=== PATIENT | female | born 1995 | race African-American/Black ===

== ENCOUNTER 2024-04-28 10:12 | Outpatient (CLI) | payer BC ==
[2024-04-28 11:23] VITALS: BMI 40.7
== END 2024-04-28 10:13 | disposition home or self-care (01) ==
LOC: CSHLAB 10:12
PROVIDERS: ATTEND Obstetrics & Gynecology
DX: Z01.812 Encounter for preprocedural laboratory examination (principal)
CPT/HCPCS: 85027; 86780; 86850; 86900; 86901; 87340

== ENCOUNTER 2024-04-29 10:03 | Inpatient (IN) | payer BC ==
[2024-04-28 11:09] LABS: Hematocrit 34.5 % (34.9-44.5); Hemoglobin 11.6 g/dL (12.0-15.5); Mean Corpuscular HGB CONC 33.6 g/dL (32.0-36.0); Mean Corpuscular Hemoglobin 30.6 pg (27.0-33.0); Mean Platelet Volume 10.8 fL (7.4-10.4); Platelet Count 203 10x3/uL (150-450); RBC Distribution Width 12.8 % (11.5-14.5); Red Blood Cell (RBC) Count 3.79 10x6/uL (3.90-5.03)
[2024-04-28 11:57] LABS: HBsAg Index 0.22 S/CO (0-0.99); Hep B Surf Ag Non-Reactive S/CO (NonReactive)
[2024-04-28 11:59] LABS: Syphilis Antibody Nonreactive (Nonreactive); Syphilis Antibody Index 0.05 S/CO (<1.00 Non-Reactive)
[2024-04-29] MEDS ORDERED: Ondansetron PF 4 MG/2 ML Vial IVP PRN ×3 (10:22→11:44)
[2024-04-29] MEDS ORDERED: Diphenoxylate HCl/Atropine Tablet PO PRN ×2 (10:22)
[2024-04-29] MEDS ORDERED: Bicitra 30 ML UDCUP PO PRN (10:22)
[2024-04-29] MEDS ORDERED: Carboprost 250 MCG/ML AMP IM PRN (10:22)
[2024-04-29] MEDS ORDERED: Promethazine HCl 25 MG/ML VIAL IM PRN ×2 (10:22→11:44)
[2024-04-29] MEDS ORDERED: Oxytocin 30 units/NS 500 ML 500 ML IV SCH (10:22)
[2024-04-29] MEDS ORDERED: hydrALAZINE 20 MG/ML VIAL SLOW IVP PRN ×2 (10:22→15:40)
[2024-04-29] MEDS ORDERED: Tranexamic Acid 1,000 MG/10 ML VIAL IVP PRN (10:22)
[2024-04-29] MEDS ORDERED: Methylergonovine 0.2 MG/ML VIAL IM PRN (10:22)
[2024-04-29] MEDS ORDERED: Misoprostol 200 MCG TAB PR PRN (10:22)
[2024-04-29 10:50] VITALS: BMI 40.7
[2024-04-29] MEDS: CEFAZOLIN 2 GM in Sodium Chloride 0.9% 100 ML IVPB SCH (11:27)
[2024-04-29] MEDS: Lactated Ringer's 1,000 ML IV SCH (11:28)
[2024-04-29] MEDS: Famotidine/PF 20 mg/2ml Vial SLOW IVP PRN (11:28)
[2024-04-29 11:38] LABS: Hematocrit 33.1 % (34.9-44.5); Hemoglobin 11.1 g/dL (12.0-15.5); Mean Corpuscular HGB CONC 33.5 g/dL (32.0-36.0); Mean Corpuscular Hemoglobin 30.3 pg (27.0-33.0); Mean Corpuscular Volume 90.4 fL (81.6-98.3); Mean Platelet Volume 11.6 fL (7.4-10.4); Platelet Count 184 10x3/uL (150-450); RBC Distribution Width 12.8 % (11.5-14.5); Red Blood Cell (RBC) Count 3.66 10x6/uL (3.90-5.03); White Blood Cell (WBC) Count 6.4 10x3/uL (3.5-10.5)
[2024-04-29] MEDS ORDERED: Meperidine HCl/PF 25 MG (1 mL) VIAL SLOW IVP PRN (11:44)
[2024-04-29] MEDS ORDERED: Moisturizing Cream (Eucerin) 113 GM JAR TOP PRN (11:44)
[2024-04-29] MEDS ORDERED: diphenhydrAMINE 50 MG/ML VIAL IVP PRN (11:44)
[2024-04-29] MEDS ORDERED: Naloxone HCl 0.4 mg/ml Vial IV PRN (11:44)
[2024-04-29] MEDS ORDERED: fentaNYL 50 mcg/mL 1 mL Vial SLOW IVP PRN (11:44)
[2024-04-29] MEDS ORDERED: Naloxone HCl 0.4 mg/ml Vial IVP PRN ×2 (11:44)
[2024-04-29] MEDS ORDERED: Communication Order-Pharmacy FS SCH (11:45)
[2024-04-29] MEDS ORDERED: Lanolin Ointment 7 GM TUBE TOP PRN (15:40)
[2024-04-29] MEDS ORDERED: Bisacodyl 10 MG SUPP PR PRN (15:40)
[2024-04-29] MEDS ORDERED: Ketorolac Tromethamine 30 MG (1 mL) VIAL IVP SCH (16:30)
[2024-04-29] MEDS ORDERED: Ketorolac Tromethamine 30 MG (1 mL) VIAL IVP PRN (16:30)
[2024-04-29] MEDS ORDERED: Ibuprofen 800 MG TAB PO SCH (18:00)
[2024-04-29] MEDS: Ketorolac Tromethamine 30 MG (1 mL) VIAL IVP SCH (18:24)
[2024-04-29] MEDS: Dexmedetomidine 200 MCG/2 ML VIAL ONE (19:16)
[2024-04-29] MEDS: ePHEDrine Sulfate 50 MG/10 ML VIAL ONE (19:16)
[2024-04-29] MEDS: Morphine PF 10 MG/10 ML VIAL ONE (19:16)
[2024-04-29] MEDS: Ketorolac Tromethamine 30 MG (1 mL) VIAL ONE (19:17)
[2024-04-29] MEDS: Oxytocin 10 UNITS/ML VIAL ONE (19:22)
[2024-04-29] MEDS: Ondansetron PF 4 MG/2 ML Vial ONE (19:22)
[2024-04-29] MEDS: Boostrix 0.5 ML (Tdap) VIAL (>/=7 yrs of age) IM ONE (19:23)
[2024-04-29] MEDS: Phenylephrine 40 MG/NS 250 ML 250 ML ONE (19:23)
[2024-04-29] MEDS: PHENYLEPHRINE-NS 100 MCG/ML 10 ML SYRINGE ONE (19:23)
[2024-04-29] MEDS: diphenhydrAMINE 25 MG CAP PO PRN (20:09)
[2024-04-29] MEDS: Docusate 100 MG CAP PO SCH (21:11)
[2024-04-29] MEDS ORDERED: Zolpidem Tartrate 5 MG TAB PO PRN (23:45)
[2024-04-30 04:34] LABS: Hematocrit 32.5 % (34.9-44.5); Mean Corpuscular HGB CONC 33.8 g/dL (32.0-36.0); Mean Corpuscular Volume 91.5 fL (81.6-98.3); Mean Platelet Volume 11.2 fL (7.4-10.4); Platelet Count 186 10x3/uL (150-450); RBC Distribution Width 12.8 % (11.5-14.5); Red Blood Cell (RBC) Count 3.55 10x6/uL (3.90-5.03); White Blood Cell (WBC) Count 6.9 10x3/uL (3.5-10.5)
[2024-04-30] MEDS: HYDROcodone/Acetaminophen 5/325 mg Tablet PO PRN ×2 (06:15→14:28)
[2024-04-30] MEDS: Prenatal Vitamin 1 TAB PO SCH (09:06)
[2024-04-30] MEDS: Ferrous Sulfate 325 MG TAB PO SCH (19:21)
[2024-04-30] MEDS: Simethicone Chewable 80 MG TAB PO PRN (22:00)
[2024-05-01] MEDS: Ibuprofen 800 MG TAB PO SCH (00:06)
[2024-05-01 08:36] VITALS: BP 101/70; TEMP 98.5
[2024-05-01] MEDS: Acetaminophen 325 MG TAB PO PRN (10:13)
[2024-05-05] MEDS ORDERED: Ibuprofen 800 MG TAB PO SCH (00:30)
== END 2024-05-01 12:15 | disposition home or self-care (01) | DRG 788 ==
LOC: CSHLD 10:03 → CSHPP 15:15
PROVIDERS: ADMIT Obstetrics & Gynecology; ATTEND Obstetrics & Gynecology
PROC: 10D00Z1 Extraction of Products of Conception, Low, Open Approach (ICD-10-PCS; principal; 2024-04-29)
DX: O34.211 Maternal care for low transverse scar from previous cesarean delivery (principal); Z3A.39 39 weeks gestation of pregnancy; Z37.0 Single live birth
CPT/HCPCS: 36415; 51702; 85027; 86780; 86850; 86900; 86901; 87340; J1885; J2274; J2405; J2590; J3490; J7120